=== PATIENT | female | born 1950 | race African-American/Black ===

== ENCOUNTER 2018-12-22 10:41 | Day surgery (SDC) | payer MEDICAID ==
[~2018-12-22 10:41] MED LIST: CHONDR SU A NA/HYALUR INTRAOC KIT (SURGICARE) ONE; EPINEPHRINE INJ/PF 1 MG/1 ML AMPULE ONE; FENTANYL CITRATE INJ/PF 100 MCG/2 ML AMPUL ONE; KETOROLAC TROMETHAMINE 0.45% 4 DROP/0.4 ML DROPERETTE OD PRN; MIDAZOLAM 2 MG/2 ML INJ ONE
[2018-12-22] MEDS: BESIFLOXACIN HCL 0.6% OPH SUSP 5 ML BOTTLE OD PRN ×3 (11:55→12:47)
[2018-12-22] MEDS: CYCLOPENTOLATE 0.2%/PHENYLEPHRINE 1% OPH SOLN 2 ML OD PRN ×3 (11:55→12:15)
[2018-12-22] MEDS: TROPICAMIDE 1% OPH SOLN 3 ML OD PRN ×3 (11:55→12:15)
[2018-12-22] MEDS: TETRACAINE HCL 0.5% OPH SOLN 4 ML OD PRN ×3 (11:55→12:35)
[2018-12-22] MEDS ORDERED: TRYPAN BLUE 0.06 % OPH SOLN 0.5 ML DISP.SYRIN ONE (12:18)
[2018-12-22] MEDS: LIDOCAINE 1%/PHENYLEPHRINE 1.5% 1 ML VIAL ONE ×2 (12:44→12:54)
[2018-12-22] MEDS: DORZOLAMIDE HCL 2%/TIMOLOL MALEAT 0.5% OPH SOLN 10 ML OD PRN ×2 (12:47→12:54)
--- NOTE | 2018-12-22 13:35 | Operative Report ---
Operative Report-[facility] Operative Report: DATE OF SURGERY: 12/22/2018 PREOPERATIVE DIAGNOSIS: Cataract, right eye POSTOPERATIVE DIAGNOSIS: Cataract, right eye OPERATION: Cataract extraction with insertion of an IOL of the right eye. Intraocular Lens Model: [22.5 sn60wf] SURGEON: Donovan Christianson MD ANESTHESIA: Topical PROCEDURE: After obtaining appropriate consent, the patient's right eye was prepped and draped in a sterile fashion as well as the surgeon in the sterile manner and cataract surgery was started. First a paracentesis blade was used to make a side-port incision. Viscoelastic was used to inflate the anterior chamber. Next a 2.4 mm incision was made with a 2.4 mm blade, clear corneal temporarily. A continuous capsulorrhexis was made using a cystotome and Utrata forceps. Following this hydrodissection was carried out to make the david fully loose and mobile and it was rotated. Following this, a divide and conquer technique was used to phacoemulsify the daivd. The remaining cortex was removed with an irrigation/aspiration. Provisc was instilled into the capsular bag to inflate the bag. The intraocular lens was placed. The remaining viscoelastic material was removed with irrigation/aspiration. Following this, the incision was found to be watertight. Besivance and Cosopt was instilled into the eye and a protective shield was placed over the eye. The patient was reurned to the postoperative recovery in a stable condition.
--- NOTE | 2018-12-22 13:36 | PDOC DISCHARGE SUMMARY ---
Discharge Summary-[facility] Discharge Summary: DATE OF SURGERY: 12/22/2018 PREOPERATIVE DIAGNOSIS: Cataract, right eye POSTOPERATIVE DIAGNOSIS: Cataract, right eye OPERATION: Cataract extraction with insertion of an IOL of the right eye. SURGEON: Donovan Christianson MD ANESTHESIA: Topical The patient underwent surgery because they are having [trouble seeing road signs]. They're to be on a regular diet, no bending at their waist, and no heavy lifting. They should use the prescribed antibiotic, NSAID, and steroid at 3 PM and 8 PM. They should sleep with a rigid shield and I will see them for 1 day postoperative tomorrow.
== END 2018-12-22 13:30 | disposition home or self-care (01) ==
LOC: SC 10:41
PROVIDERS: ATTEND Internal Medicine
DX: H25.89 Other age-related cataract (principal); Z96.1 Presence of intraocular lens; I10 Essential (primary) hypertension
CPT/HCPCS: 66984; V2632; J2250; J3490 ×3; J0171; J3010; J2370; 142